=== PATIENT | male | born 1955 | race Caucasian/White ===

== ENCOUNTER 2018-03-05 00:07 | Emergency (ER) | payer OTHER ==
[2018-03-05] MEDS: CLINDAMYCIN 600 MG INJ IM (05:00)
== END 2018-03-05 05:22 | disposition home or self-care (01) ==
LOC: FTE 00:07
DX: L08.9 Local infection of the skin and subcutaneous tissue, unspecified (principal); B95.62 Methicillin resistant Staphylococcus aureus infection as the cause of diseases classified elsewhere; Z87.891 Personal history of nicotine dependence
CPT/HCPCS: 96372; 99284-25